=== PATIENT | male | born 1940 | race Caucasian/White ===

== ENCOUNTER 2022-06-22 13:40 | Emergency (ER) | payer MEDICARE ==
[~2022-06-22] VITALS: Ht 172.7 cm; Wt 74.8 kg
[2022-06-22 13:45] VITALS: BP_SYST 152
[2022-06-22 16:24] LABS: BASOPHILS # (AUTO) 0.1 K/uL (0.0-0.2); BASOPHILS % (AUTO) 0.5 % (0.0-2.0); EOSINOPHILS % (AUTO) 0.3 % (0.0-4.0); HEMATOCRIT 37.3 % (36-54); HEMOGLOBIN 11.9 g/dL (14.0-18.0); LYMPHOCYTES # (AUTO) 0.8 K/uL (1.0-5.5); MEAN CORPUSCULAR HEMOGLOBIN 28 pg (27-31); MEAN CORPUSCULAR HGB CONC 32 % (32-36); MEAN CORPUSCULAR VOLUME 87 fL (79.0-98.0); MONOCYTES # (AUTO) 0.6 K/uL (0.0-1.0); MONOCYTES % (AUTO) 5.2 % (1.7-9.3); NEUTROPHILS # (AUTO) 9.6 K/uL (1.8-7.7); PLATELET COUNT (AUTO) 198 K/uL (130-430); RED CELL DISTRIBUTION WIDTH 13.6 % (9.0-15.0)
[2022-06-22] MEDS ORDERED: LACT10SO7 PO (16:25)
[2022-06-22] MEDS ORDERED: CARB1TAB33 PO (16:25)
[2022-06-22] MEDS ORDERED: BUSP5TAB3 PO (16:25)
[2022-06-22] MEDS ORDERED: METF-379 PO (16:25)
[2022-06-22] MEDS ORDERED: MIRT-114 PO (16:25)
[2022-06-22] MEDS ORDERED: LIP20 PO (16:25)
[2022-06-22] MEDS ORDERED: DOCU-144 PO (16:25)
[2022-06-22] MEDS ORDERED: TAMS-11 PO (16:25)
[2022-06-22] MEDS ORDERED: METO25TA6 PO (16:25)
--- NOTE | 2022-06-22 16:26 | NUR ---
Placed in room 03 . Placed on monitor technician, blood pressure machine and pulse oximeter. To gown for exam. Side rails up. Report given to KASHIF DUARTE.
[2022-06-22 16:43] LABS: ANION GAP 8 (5-15); CHLORIDE 116 mmol/L (98-107); CREATININE 1.26 mg/dL (0.55-1.30); GLUCOSE 185 mg/dL (70-99); UREA NITROGEN, BLOOD 25 mg/dL (8-21)
[2022-06-22 16:44] LABS: ACETONE, SERUM NEGATIVE (NEGATIVE)
[2022-06-22 16:48] LABS: INR 1.3 (0.80-1.20); PROTHROMBIN TIME 12.6 SECS (9.5-12.5)
[2022-06-22 16:51] LABS: ALANINE AMINOTRANSFERASE 18 U/L (12-78); ALBUMIN 2.6 g/dL (3.4-4.8); ASPARTATE AMINOTRANSFERASE 9 U/L (10-37); TOTAL BILIRUBIN 0.4 mg/dL (0.0-1.0)
[2022-06-22 16:52] LABS: ACETAMINOPHEN < 1 ug/mL (1-30); ALCOHOL, BLOOD < 3 mg/dL (<10)
[2022-06-22] MEDS ORDERED: NACL 0.9% 1,000 ML IV ONE ×2 (17:00→17:30)
--- NOTE | 2022-06-22 17:07 | NUR ---
PT IS OFF TO CT AT THIS TIME
--- NOTE | 2022-06-22 18:25 | NUR ---
URINE COLLECTED AT THIS TIME
[2022-06-22 18:31] LABS: BILIRUBIN,URINE NEGATIVE (NEGATIVE); COLOR,URINE YELLOW (YELLOW); GLUCOSE,URINE TRACE (NEGATIVE); KETONES,URINE NEGATIVE (NEGATIVE); LEUKOCYTE ESTERASE ,URINE NEGATIVE (NEGATIVE); NITRITE, URINE POSITIVE (NEGATIVE); PROTEIN URINE TRACE (NEGATIVE); UROBILINOGEN,URINE 0.2 (0.2-1.0)
[2022-06-22 18:34] LABS: BLOOD, URINE TRACE (NEGATIVE); CLARITY/URINE SLIGHTLY HAZY (CLEAR)
--- NOTE | 2022-06-22 18:39 | NUR ---
COVID SWAB SENT AT THIS TIME
[2022-06-22 18:53] LABS: BARBITURATE, URINE NEGATIVE (NEG <=200); BENZODIAZEPINE, URINE NEGATIVE (NEG <=150); CANNABINOID, URINE POSITIVE (NEG <=50); COCAINE, URINE NEGATIVE (NEG <=150); METHAMPHETAMINES SCREEN,URINE NEGATIVE (NEG <=500); OPIATE, URINE NEGATIVE (NEG <=100); PHENCYCLIDINE SCREEN,URINE NEGATIVE (NEG <=25); UR TRICYCLIC ANTIDEPRESSANTS NEGATIVE (NEG <=300); URINE AMPHETAMINE NEGATIVE (NEG <=500); URINE METHADONE NEGATIVE (NEG <=200); URINE OXYCODONE SCREEN NEGATIVE (NEG <=100); URINE PROPOXYPHENE SCREEN NEGATIVE (NEG <=300)
[2022-06-22 18:58] LABS: BACTERIA,URINE MANY /HPF (None Seen); MUCUS,URINE 1+ /LPF (None Seen); RBC,URINE 0-3 /HPF (0-3)
--- NOTE | 2022-06-22 20:58 | NUR ---
Son at bedside and updated on POC. Questions/Concerns answered.
--- NOTE | 2022-06-22 21:23 | NUR ---
# 20 gauge angiocath placed to R FOREARM. Use of asceptic technique. Opsite placed over site. Blood return noted. Flushed with 10 cc of normal saline. No evidence of infiltration noted. Patient tolerated well.
--- NOTE | 2022-06-22 22:01 | NUR ---
Patient to be transferred to [facility]. Is being transferred due to higher level of care. Receiving facility has accepting physician and available space. ER physician has signed transfer form. Patient or responsible democrat has agreed to transfer and signed form. Copy of nursing notes, lab reports, EKG, Physicians Orders and X-rays to be sent with patient. Report called to KASHIF Rey at receiving facility. Receiving physician is Dr. Garcia. Transportation service has been called for transfer. ETA is [id number].
--- NOTE | 2022-06-22 23:10 | NUR ---
[facility] transportation arrived for transfer to [facility]. Pt care/report endorsed to EMT's. Pt left facility in stable condition.
[2022-06-22 23:11] VITALS: BP_SYST 144
== END 2022-06-22 23:11 | disposition short-term general hospital (02) ==
LOC: SED 13:40 → EDSEX 13:40 → SED 23:11
DX: N39.0 Urinary tract infection, site not specified (principal); R62.7 Adult failure to thrive; E87.0 Hyperosmolality and hypernatremia; E87.5 Hyperkalemia; E11.9 Type 2 diabetes mellitus without complications; I10 Essential (primary) hypertension; Z79.899 Other long term (current) drug therapy; Z20.822 Contact with and (suspected) exposure to COVID-19
CPT/HCPCS: 99285; 96365; 70450; 71045; 96361; 87426; 80307; 80053; 82009; 82140; 82550; 83880; 85025; 85610; 85730; 86140; 87040; 87086; 84484; 36415; 93005; 76376; 83605; 81000; G0482; J1956; J7030; G0480; G0481